=== PATIENT | female | born 1980 | race Caucasian/White ===

== ENCOUNTER 2018-03-30 18:56 | Emergency (ER) | payer BC, MEDICAID, OTHER ==
[~2018-03-30] VITALS: Ht 157.5 cm; Wt 86.2 kg
[2018-03-30 19:11] VITALS: BP_SYST 140
[2018-03-30] MEDS ORDERED: IBUPROFEN 800 MG TABLET PO ONE (20:00)
[2018-03-30 21:33] VITALS: BP_SYST 132
== END 2018-03-30 21:33 | disposition home or self-care (01) ==
LOC: SED 18:56
DX: M79.662 Pain in left lower leg (principal); Z90.49 Acquired absence of other specified parts of digestive tract; Z98.51 Tubal ligation status
CPT/HCPCS: 93971; 99284